=== PATIENT | female | born 1970 | race Caucasian/White ===

== ENCOUNTER 2017-06-30 10:38 | Emergency (ER) | payer BC ==
--- NOTE | 2017-06-30 11:14 | RAD ---
RADIOGRAPH CHEST 1 VIEW: HISTORY: 47-year-old female with acute cough and chills. FINDINGS: The visualized lung mena are clear. The cardiomediastinal silhouette and hilar shadows are normal . The lateral costophrenic angles are sharp. The osseous structures appear normal. There is no pn eumothorax. IMPRESSION: Negative. jn [] POS: [facility]
== END 2017-06-30 13:23 | disposition home or self-care (01) ==
LOC: ERS 10:38
DX: J02.9 Acute pharyngitis, unspecified (principal)
CPT/HCPCS: 71010; 87081; 87430

== ENCOUNTER 2018-07-07 02:03 | Emergency (ER) | payer BC, SELFPAY ==
[2018-07-07 02:24] LABS: Bilirubin Small (Negative); Blood, Urine Trace (Negative); Clarity TURBID (Clear); Glucose, Urine (Dipstick) Negative (Negative); Leukocyte Moderate (Negative); Nitrite Negative (Negative); Protein, Urine (Dipstick) Trace mg/dL (Neg-Trace); Specific Gravity, Urine 1.031 (1.002-1.036); Urobilinogen 0.2 mg/dL (0.2-1.0); pH, Urine 5.5 (5.0-9.0)
[2018-07-07 02:26] LABS: Bacteria/HPF None Seen HPF (None Seen); Yeast-AUWi Flag 19.1 (0-25.0)
[2018-07-07 02:27] LABS: Pathc Cast-AUWi Flag 7.85 (0-2.49)
[2018-07-07 02:38] LABS: Other Casts/LPF None Seen LPF (0-3 Hyaline)
[2018-07-07] MEDS ORDERED: cefTRIAXone\\ROCEPHIN 1 GM VIAL ONE (03:27)
[2018-07-07] MEDS ORDERED: Lidocaine 2% PF 5 ML VIAL ONE (03:27)
== END 2018-07-07 04:07 | disposition home or self-care (01) ==
LOC: ERS 02:03
DX: N39.0 Urinary tract infection, site not specified (principal)
CPT/HCPCS: 81003; 81015; 87086; 96372; J0696; J2001

== ENCOUNTER 2018-08-18 23:28 | Emergency (ER) | payer BC ==
--- NOTE | 2018-08-18 23:56 | RAD ---
TWO VIEW CHEST: 08/18/18 HISTORY: Cough. Lungs are clear. Heart and mediastinum unremarkable. IMPRESSION: No acute findings. POS: [facility]
== END 2018-08-19 01:38 | disposition home or self-care (01) ==
LOC: ERS 23:28
DX: J06.9 Acute upper respiratory infection, unspecified (principal)
CPT/HCPCS: 71046; 87804

== ENCOUNTER 2018-10-31 22:08 | Emergency (ER) | payer BC | END 2018-10-31 23:00 | disposition home or self-care (01) | LOC: ERS 22:08 | DX: H00.016 Hordeolum externum left eye, unspecified eyelid (principal) | CPT/HCPCS: 99283 ==

== ENCOUNTER 2018-11-13 01:59 | Emergency (ER) | payer BC ==
[2018-11-13] MEDS ORDERED: Ketorolac Tromethamine 60 MG/2 ML VIAL ONE (06:11)
--- NOTE | 2018-11-13 08:00 | RAD ---
RIGHT FOOT THREE VIEWS: HISTORY: Foot pain. FINDINGS: There are enthesophytes from the plantar and posterior calcaneus. Tarsals are otherwise unremarkable . The metatarsals and phalanges appear unremarkable. MTP and IP joints are unremarkable. No fractu re or acute finding. IMPRESSION: There are enthesophytes from the calcaneus. No acute finding identified. POS: [facility]
== END 2018-11-13 06:20 | disposition home or self-care (01) ==
LOC: ERS 01:59
DX: M79.671 Pain in right foot (principal)
CPT/HCPCS: 96372; J1885

== ENCOUNTER 2022-05-01 13:05 | Emergency (ER) | payer BC | END 2022-05-01 15:30 | disposition home or self-care (01) | LOC: ERS 13:05 | DX: U07.1 COVID-19 (principal); J06.9 Acute upper respiratory infection, unspecified | CPT/HCPCS: 87804; 99283; U0003; U0005 ==